=== PATIENT | female | born 1995 | race African-American/Black ===

== ENCOUNTER 2017-01-25 07:04 | Emergency (ER) | payer OTHER ==
--- NOTE | ~2017-01-25 | CR126 ---
[facility]. [facility] A Service of [facility] & [facility] RADIOLOGY TEXT RESULTS PATIENT: JARROD ABREU LOCATION: SED : 95 UNIT #: [id number] AGE: [address]: Roberto Ambrocio MD SEX: F ORDER DR: [id number] [place] [address] [id number] MR#: [id number] Acc #: [id number] NAME: JARROD ABREU : 1995 SEX: F STUDY DATE/TIME: 01/25/2017 7:16 UNIT: SED ROOM: STUDY DESCRIPTION: CR Foot Complete Min 3 View Lt Attending Physician: Roberto Ambrocio M.D. Ordering Physician: Roberto Ambrocio M.D. Primary Care Physician: Dorene Torres M.D. MEDICAL IMAGING REPORT This report is preliminary unless electronic signature is present. EXAM Left foot 01/25 INDICATION Foot pain after falling at 03:00 a.m. this morning. FINDINGS The tarsal, metatarsal, and phalangeal elements are all anatomically normal in position and alignment. There are no articular defects. No fractures or radiopaque foreign bodies in the soft tissues are apparent. IMPRESSION Normal foot. Dictated by... Flaco Power Jr., M.D. THIS IS AN ELECTRONICALLY VERIFIED REPORT Flaco Power Jr., M.D. at 01/25/2017 5:09 PM GLENN/kim TD: 01/25/2017 09:49 JOB #: [id number] MEDICAL IMAGING REPORT Page 1 of 1
--- NOTE | ~2017-01-25 | CR20 ---
[facility]. [facility] A Service of [facility] & [facility] RADIOLOGY TEXT RESULTS PATIENT: JARROD ABREU LOCATION: SED : 95 UNIT #: [id number] AGE: [address]: Roberto Ambrocio MD SEX: F ORDER DR: [id number] [place] [address] [id number] E MR#: [id number] Acc #: [id number] NAME: JARROD ABREU : 1995 SEX: F STUDY DATE/TIME: 01/25/2017 7:16 UNIT: SED ROOM: STUDY DESCRIPTION: CR Ankle Min 3 Views Lt Attending Physician: Roberto Ambrocio M.D. Ordering Physician: Roberto Ambrocio M.D. Primary Care Physician: Dorene Torres M.D. MEDICAL IMAGING REPORT This report is preliminary unless electronic signature is present. EXAM Left ankle 01/25 INDICATIONS Ankle pain after falling at 03:00 a.m. this morning. FINDINGS Three views of the ankle were obtained. No acute fracture or malalignment is seen. The mortise is intact. There may be some medial soft tissue swelling. IMPRESSION Medial soft tissue swelling. No acute fracture or malalignment. Dictated by... Flaco Power Jr., M.D. THIS IS AN ELECTRONICALLY VERIFIED REPORT Flaco Power Jr., M.D. at 01/25/2017 5:09 PM GLENN/ra TD: 01/25/2017 09:01 JOB #: [id number] MEDICAL IMAGING REPORT Page 1 of 1
[~2017-01-25 07:04] MED LIST: BENTYL10 M1 PO; CLARITIN10 M3; DEPO-PROVER150 MG/ML INJ; FLEXERIL10 MG PO; LOMOTIL TABLET1 TAB; LOMOTIL WHITE2.5 M1 PO; NO MEDICATIONS; PHENERGAN; VOLTAREN75 MG PO; ZOFRAN ODT4 MG PO; ZOFRAN ODT4 MG SL; ZOFRAN PO; ZOFRANODT SL
[2017-01-25] MEDS ORDERED: IBUPROFEN PO (07:48)
[2017-01-25] MEDS ORDERED: TYLENOL #3 PO (07:48)
== END 2017-01-25 07:55 | disposition home or self-care (01) ==
LOC: SED 07:04
DX: S93.422A Sprain of deltoid ligament of left ankle, initial encounter (principal); S93.622A Sprain of tarsometatarsal ligament of left foot, initial encounter; F31.9 Bipolar disorder, unspecified; E66.9 Obesity, unspecified; X50.1XXA Overexertion from prolonged static or awkward postures, initial encounter; Y92.009 Unspecified place in unspecified non-institutional (private) residence as the place of occurrence of the external cause
CPT/HCPCS: 29540; 73610; 73630; 99283